=== PATIENT | male | born 1950 | race Caucasian/White ===

== ENCOUNTER 2023-04-06 09:14 | Emergency (ER) | payer OTHER ==
[~2023-04-06] VITALS: Ht 162.6 cm; Wt 72.6 kg
[~2023-04-06 09:14] MED LIST: HYDACE10B PO
[2023-04-06 09:30] VITALS: BP 152/83
== END 2023-04-06 10:50 | disposition home or self-care (01) ==
LOC: ER 09:14
DX: S43.401A Unspecified sprain of right shoulder joint, initial encounter (principal); S20.211A Contusion of right front wall of thorax, initial encounter; W18.30XA Fall on same level, unspecified, initial encounter
CPT/HCPCS: 71101; 73030; 99283-25

== ENCOUNTER 2025-01-14 12:33 | Emergency (ER) | payer OTHER, MEDICARE ==
[~2025-01-14] VITALS: Ht 172.7 cm; Wt 90.7 kg
[2025-01-14] MEDS ORDERED: POLYETHYLENE G500 G1 (13:22)
[2025-01-14] MEDS ORDERED: ALEVAZOL56.7 G1 TOP (13:23)
[2025-01-14] MEDS ORDERED: IBUP800 PO (13:23)
[2025-01-14] MEDS ORDERED: NAPR220 PO (13:24)
[2025-01-14] MEDS ORDERED: Ondansetron HCl 2 MG / ML 2ML Vial IV ONE (13:25)
[2025-01-14] MEDS ORDERED: Morphine Sulfate 4 MG/1 ML Injection IV ONE (13:25)
[2025-01-14] MEDS ORDERED: OMEP20ER PO (13:25)
[2025-01-14] MEDS ORDERED: AMLO5 PO (13:25)
[2025-01-14] MEDS ORDERED: TAMS.4ER PO (13:25)
[2025-01-14] MEDS ORDERED: DICLOFENAC SOD100 GM TP (13:26)
[2025-01-14] MEDS ORDERED: Aspir 8181 MG PO (13:26)
[2025-01-14] MEDS ORDERED: THERA-D2000 UNIT PO (13:26)
[2025-01-14] MEDS ORDERED: FINA5 PO (13:27)
[2025-01-14] MEDS ORDERED: ATOR10 PO (13:27)
[2025-01-14] MEDS ORDERED: GABA300 PO (13:28)
[2025-01-14] MEDS ORDERED: SILD50TA PO (13:28)
[2025-01-14] MEDS ORDERED: ACET500 PO (13:28)
[2025-01-14] MEDS ORDERED: METF500 PO (13:29)
[2025-01-14] MEDS ORDERED: LORA10ER PO (13:30)
[2025-01-14] MEDS ORDERED: LIDO700A20 TOP (13:30)
[2025-01-14 13:35] LABS: BASOPHILS ABSOLUTE AUTO 0.03 K/mm3 (0.00-0.23); BASOPHILS PERCENT AUTO 0 % (0-2); EOSINOPHILS ABSOLUTE AUTO 0.00 K/mm3 (0.00-0.68); EOSINOPHILS PERCENT AUTO 0 % (0-6); Hematocrit 40.3 % (37.0-53.0); Hemoglobin 13.9 g/dL (13.5-17.5); IMMATURE GRAN ABSOLUTE AUTO 0.02 K/mm3 (0.00-0.10); IMMATURE GRAN PERCENT AUTO 0 % (0-1); LYMPHOCYTES ABSOLUTE AUTO 0.62 K/mm3 (0.84-5.20); LYMPHOCYTES PERCENT AUTO 7 % (21-46); MONOCYTES ABSOLUTE AUTO 0.83 K/mm3 (0.16-1.47); MONOCYTES PERCENT AUTO 9 % (4-13); Mean Corpuscular HGB Conc 34.5 g/dL (31.5-36.5); Mean Corpuscular Volume 102 fL (80-100); NEUTROPHILS ABSOLUTE AUTO 7.65 K/mm3 (1.96-9.15); NEUTROPHILS PERCENT AUTO 84 % (41-73); NRBC ABSOLUTE 0.00 K/mm3 (0.00-0.02); NRBC Auto 0.0 /100 WBC (0.0-0.2); Platelet Count 212 K/mm3 (150-400); RDW Coefficient Variation 15.9 % (11.7-14.2); RDW Standard Deviation 60.0 fL (35.1-46.3)
[2025-01-14] MEDS ORDERED: Ciprofloxacin 400MG/D5 200ML 200 ML IV ONE (13:35)
[2025-01-14] MEDS ORDERED: MetroNIDAZOLE 500MG/NS 100 ml 100 ML IV ONE (13:35)
[2025-01-14 13:49] LABS: Alanine Aminotransfer (ALT/SGP 11.0 U/L (12-78); Albumin, Blood 3.2 g/dL (3.4-5.0); Albumin/Globulin Ratio 0.9 (0.8-1.8); Anion Gap 12.0 mmol/L (3-11); Aspartate Aminotrans (AST/SGOT 11.0 U/L (12-37); Bilirubin, Total 1.8 mg/dL (0.1-1.0); Blood Urea Nitrogen 26.0 mg/dL (8-24); CO2, Blood 20.0 mmol/L (21-32); Calcium, Blood 8.7 mg/dL (8.5-10.1); Chloride, Blood 101.0 mmol/L (98-108); Creatinine, Blood 1.25 mg/dL (0.60-1.20); Globulin, Blood 3.7 g/dL (2.2-4.0); Glucose, Blood 234.0 mg/dL (70-99); Magnesium, Blood 1.8 mg/dL (1.6-2.4); Potassium, Blood 4.6 mmol/L (3.5-5.5); Sodium, Blood 128.0 mmol/L (136-145); Total Protein, Blood 6.9 g/dL (6.4-8.2)
[2025-01-14 14:20] LABS: Prothrombin Time Results 11.1 Sec (9.7-11.5)
[2025-01-14] MEDS ORDERED: HYDROmorphone HCl/Pf 1MG SYR IV PRN (14:50)
[2025-01-14] MEDS ORDERED: Ondansetron HCl 2 MG / ML 2ML Vial IV PRN (14:50)
[2025-01-14] MEDS ORDERED: NS 1,000 ML IV SCH (14:50)
[2025-01-14] MEDS ORDERED: FLU VACC TS2025(65UP)/MF59C/PF 45 MCG/0.5 ML SYRINGE IM SCH (14:55)
[2025-01-14] MEDS ORDERED: Insulin Human Lispro 100 Units/ML 3ML Syringe SC SCH (18:00)
[2025-01-14] MEDS ORDERED: Ciprofloxacin 400MG/D5 200ML 200 ML IV SCH (21:00)
[2025-01-14 21:30] VITALS: BP 98/55
[2025-01-15] MEDS ORDERED: MetroNIDAZOLE 500MG/NS 100 ml 100 ML IV SCH
[2025-01-15] MEDS ORDERED: Pantoprazole Sodium 40 MG Injection IV SCH (06:00)
== END 2025-01-14 21:40 | disposition short-term general hospital (02) ==
LOC: ER 12:33
PROVIDERS: Emergency Medicine
DX: K27.5 Chronic or unspecified peptic ulcer, site unspecified, with perforation (principal); Z88.0 Allergy status to penicillin
CPT/HCPCS: 36415; 74177; 80053; 83605; 83690; 83735; 85025; 85610; 85730; 86850; 86900; 86901; 87040; 93005; 93010; 96365-59; 96367; 96375; 99285-25; A9270; J0744; J1171; J2270; J2405; J7120; Q9967